=== PATIENT | female | born 1975 | race Hispanic/Latino ===

== ENCOUNTER 2024-08-23 09:51 | Inpatient (IN) | payer BC, OTHER ==
[~2024-08-23] VITALS: Ht 162.6 cm; Wt 99.8 kg
[2024-08-23] VITALS (23 sets, daily range): BP systolic 138–159; BP diastolic 84–102; PULSE 96–124; RESP 12–27; TEMP 97.8–98.2; O2SAT 90–100
[~2024-08-23 09:51] MED LIST: ALLERGY INJ SQ; BEYAZ 28 TABLE1 EACH PO; CELEBREX200 MG PO; LISINOPRIL-HCT1 EAC1 PO; LISINOPRIL20 MG PO; LOESTRIN 24 FE1 EACH PO; LOVENOX40 MG/0.4 SC; METFORMIN HCL1000 MG PO; METFORMIN HCL500 MG PO; NAPROXEN500 MG PO; NRC7.5T PO; SIMVASTATIN40 MG PO; SPIRONOLACTONE50 MG PO; ULTRAM 50MG50 MG PO; VICTOZA 2-0.6 MG/0.1 SQ; VITAMIN D1000 UNIT
[2024-08-23] MEDS ORDERED: FUROSEMIDE INJ 10 MG/ML 2 ML VIAL ONE (10:05)
[2024-08-23] MEDS: ONDANSETRON HCL INJ 2MG/ML 2ML 2 MG/ML VIAL IV STA (10:17)
[2024-08-23] MEDS: FUROSEMIDE INJ 10 MG/ML 2 ML VIAL IV ONE (10:17)
[2024-08-23 10:21] LABS: BASOPHILS % 0.4 % (0.0-1.0); EOSINOPHILS # (AUTO) 0.3 (0.0-0.4); EOSINOPHILS % 3.7 % (0.0-6.0); HEMATOCRIT 42.9 % (34.2-44.1); HEMOGLOBIN 14.5 g/dL (12.0-16.0); LYMPHOCYTES # (AUTO) 2.8 (1.0-3.2); LYMPHOCYTES % 36.8 % (18.0-39.1); MEAN CORPUSCULAR HGB CONC 33.8 g/dL (31-35); MEAN CORPUSCULAR VOLUME 88.6 fL (81-99); MONOCYTES # (AUTO) 0.4 (0.2-0.8); MONOCYTES % 5.2 % (4.4-11.3); NEUTROPHILS % 53.6 % (38.7-80.0); PLATELET COUNT 294 x10e3/uL (140-360); RED BLOOD COUNT 4.84 x10e6/uL (3.6-5.1); RED CELL DISTRIBUTION WIDTH 13.1 % (11.7-14.4); WHITE BLOOD COUNT 7.49 x10e3/uL (4.8-10.8)
[2024-08-23] MEDS: NITROGLYCERIN 2% OINT 1 GM PKT TOP STA (10:26)
[2024-08-23] MEDS ORDERED: SPIRONOLACTONE25 MG PO (10:26)
[2024-08-23] MEDS ORDERED: JARDIANCE10 MG PO (10:29)
[2024-08-23] MEDS ORDERED: DEXTROAMP-AMPHE30 MG PO (10:29)
[2024-08-23] MEDS ORDERED: LIPITOR20 MG PO (10:29)
[2024-08-23] MEDS ORDERED: CYCLOBENZAPRINE10 MG PO (10:29)
[2024-08-23] MEDS ORDERED: AMLODIPINE BESYL5 MG PO (10:29)
[2024-08-23 10:44] LABS: INR 0.92; PARTIAL THROMBOPLASTIN TIME 24.1 seconds (23.8-35.5); PROTHROMBIN TIME 12.9 seconds (11.9-14.5)
[2024-08-23 10:47] LABS: ALANINE AMINOTRANSFERASE 80 IU/L (0-55); ALBUMIN 3.6 g/dL (3.5-5.0); ALBUMIN/GLOBULIN RATIO 0.9 (0.8-2.0); ALKALINE PHOSPHATASE 66 IU/L (40-150); ANION GAP 16.4 mmol/L (8-16); BILIRUBIN,TOTAL 0.8 mg/dL (0.2-1.2); BLOOD UREA NITROGEN 7 mg/dL (7-26); BUN/CREATININE RATIO 9 (6-25); CALCIUM 8.8 mg/dL (8.4-10.2); CARBON DIOXIDE 24 mmol/L (22-29); CHLORIDE 100 mmol/L (98-107); CREATINE KINASE 120 IU/L (29-168); CREATININE, SERUM 0.78 mg/dL (0.57-1.11); EST GLOMERULAR FILTRATION RATE 93 ML/MIN (>=60); GLUCOSE 201 mg/dL (74-118); SODIUM 137 mmol/L (136-145); TOTAL PROTEIN 7.5 g/dL (6.5-8.1)
[2024-08-23 10:54] LABS: TROPONIN I 0.018 ng/mL (0-0.300)
[2024-08-23 11:00] LABS: POTASSIUM 3.4 mmol/L (3.5-5.1)
[2024-08-23] MEDS: Doxycycline IV 100 MG in SODIUM CHLORIDE 0.9% 100 ML IV SCH (11:12)
[2024-08-23] MEDS: CEFTRIAXONE 2 GM in SODIUM CHLORIDE 0.9% 100 ML IV ONE (11:12)
[2024-08-23] MEDS ORDERED: IOPAMIDOL 370 MG/ML 100 ML INFUS..BTL INJ ONE (11:18)
[2024-08-23 11:38] LABS: BACTERIA,URINE MODERATE /HPF; BILIRUBIN,URINE NEGATIVE (NEGATIVE); CLARITY,URINE CLEAR (CLEAR); COLOR,URINE YELLOW (YELLOW); EPITHELIAL CELLS,URINE MODERATE /LPF; GLUCOSE, URINE NEGATIVE (NEGATIVE); KETONES,URINE NEGATIVE (NEGATIVE); LEUKOCYTE ESTERASE ,URINE NEGATIVE (NEGATIVE); NITRITE,URINE NEGATIVE (NEGATIVE); PH,URINE 7 (5 - 7); PROTEIN,URINE DIPSTICK 2+ (NEGATIVE); RBC,URINE 0-5 /HPF (0-5); URINE UROBILINOGEN 0.2 mg/dL (0.2 - 1)
[2024-08-23] MEDS: METOPROLOL TARTRATE 25 MG TAB PO ONE (12:08)
[2024-08-23] MEDS: ENOXAPARIN SODIUM INJ 100 MG/ML SYR SC ONE (12:08)
[2024-08-23] MEDS ORDERED: ACETAMINOPHEN 325 MG TAB ONE (12:13)
[2024-08-23] MEDS ORDERED: ONDANSETRON HCL INJ 2MG/ML 2ML 2 MG/ML VIAL IV PRN (12:15)
[2024-08-23] MEDS: ACETAMINOPHEN 325 MG TAB PO ONE (12:20)
[2024-08-23 13:07] LABS: CORONAVIRUS COVID-19 AG NEGATIVE (NEGATIVE); INFLUENZA A AG NEGATIVE (NEGATIVE); INFLUENZA B AG NEGATIVE (NEGATIVE)
[2024-08-23] MEDS: CYCLOBENZAPRINE HCL 10 MG TAB PO SCH (15:57)
[2024-08-23] MEDS ORDERED: NITROGLYCERIN 2% OINT 1 GM PKT TOP SCH (16:00)
[2024-08-23] MEDS: SPIRONOLACTONE 25 MG TAB PO SCH (16:01)
[2024-08-23] MEDS: FUROSEMIDE INJ 10 MG/ML 2 ML VIAL IV SCH (16:01)
[2024-08-23] MEDS ORDERED: LABETALOL HCL 5 MG/ML 20ML VIAL IV PRN (17:30)
[2024-08-23] MEDS: ATORVASTATIN 40 MG TAB PO SCH (19:57)
[2024-08-23] MEDS: METOPROLOL TARTRATE 25 MG TAB PO SCH (22:19)
[2024-08-23] MEDS ORDERED: DEXTROSE 50% SYRINGE 50 ML IV PRN (23:15)
[2024-08-24] VITALS (18 sets, daily range): BP systolic 130–169; BP diastolic 81–103; PULSE 83–100; RESP 16–28; TEMP 98–98.9; O2SAT 91–98
[2024-08-24 06:31] LABS: BASOPHILS % 0.1 % (0.0-1.0); HEMATOCRIT 39.1 % (34.2-44.1); LYMPHOCYTES # (AUTO) 1.2 (1.0-3.2); LYMPHOCYTES % 11.1 % (18.0-39.1); MEAN CORPUSCULAR HEMOGLOBIN 30.1 pg (28-32); MEAN CORPUSCULAR HGB CONC 33.2 g/dL (31-35); MEAN CORPUSCULAR VOLUME 90.5 fL (81-99); MONOCYTES # (AUTO) 0.5 (0.2-0.8); NEUTROPHILS # (AUTO) 9.1 (2.1-6.9); NEUTROPHILS % 83.3 % (38.7-80.0); PLATELET COUNT 315 x10e3/uL (140-360); RED BLOOD COUNT 4.32 x10e6/uL (3.6-5.1); RED CELL DISTRIBUTION WIDTH 13.1 % (11.7-14.4)
[2024-08-24 06:58] LABS: ALBUMIN 3.2 g/dL (3.5-5.0); ALBUMIN/GLOBULIN RATIO 0.9 (0.8-2.0); ANION GAP 15.5 mmol/L (8-16); BILIRUBIN,TOTAL 0.9 mg/dL (0.2-1.2); CALCIUM 9.1 mg/dL (8.4-10.2); CHOL/HDL RATIO 3.1 (3.0-3.6); CREATININE, SERUM 0.81 mg/dL (0.57-1.11); POTASSIUM 3.5 mmol/L (3.5-5.1); TOTAL PROTEIN 6.7 g/dL (6.5-8.1)
[2024-08-24 07:14] LABS: TROPONIN I 0.027 ng/mL (0-0.300)
[2024-08-24] MEDS: PANTOPRAZOLE SOD 40 MG TABEC PO SCH (07:44)
[2024-08-24] MEDS: METFORMIN HCL 500 MG TAB PO SCH (07:44)
[2024-08-24] MEDS: INSULIN REGULAR, HUMAN 100 UNIT/1 ML SQ SCH (07:45)
[2024-08-24] MEDS: AMLODIPINE BESYLATE 10 MG TAB PO SCH (08:32)
[2024-08-24] MEDS ORDERED: AMLODIPINE BESYLATE 5 MG TAB PO SCH (09:00)
[2024-08-24 14:44] LABS: TROPONIN I 0.021 ng/mL (0-0.300)
[2024-08-24] MEDS: CARVEDILOL 12.5 MG TAB PO SCH (16:44)
[2024-08-24] MEDS: ENOXAPARIN SOD INJ 40 MG/0.4 ML SYR SC SCH (16:45)
[2024-08-25] VITALS (14 sets, daily range): BP systolic 126–165; BP diastolic 81–107; PULSE 79–99; RESP 13–33; TEMP 97.6–98.1; O2SAT 93–100
[2024-08-25] MEDS: FUROSEMIDE 40 MG TAB PO SCH (08:20)
[2024-08-25] MEDS: LOSARTAN POTASSIUM 100 MG TAB PO SCH (08:20)
[2024-08-26] VITALS (9 sets, daily range): BP systolic 125–147; BP diastolic 69–98; PULSE 60–89; RESP 18–20; TEMP 97.1–97.9; O2SAT 96–100
[2024-08-26 05:44] LABS: BASOPHILS # (AUTO) 0.1 (0.0-0.1); BASOPHILS % 0.7 % (0.0-1.0); EOSINOPHILS # (AUTO) 0.3 (0.0-0.4); EOSINOPHILS % 3.6 % (0.0-6.0); HEMATOCRIT 41.9 % (34.2-44.1); HEMOGLOBIN 13.6 g/dL (12.0-16.0); LYMPHOCYTES # (AUTO) 2.4 (1.0-3.2); LYMPHOCYTES % 34.1 % (18.0-39.1); MEAN CORPUSCULAR HEMOGLOBIN 29.6 pg (28-32); MEAN CORPUSCULAR HGB CONC 32.5 g/dL (31-35); MEAN CORPUSCULAR VOLUME 91.1 fL (81-99); MONOCYTES # (AUTO) 0.5 (0.2-0.8); MONOCYTES % 7.6 % (4.4-11.3); NEUTROPHILS # (AUTO) 3.7 (2.1-6.9); NEUTROPHILS % 53.6 % (38.7-80.0); PLATELET COUNT 307 x10e3/uL (140-360); RED CELL DISTRIBUTION WIDTH 13.5 % (11.7-14.4); WHITE BLOOD COUNT 6.96 x10e3/uL (4.8-10.8)
[2024-08-26 06:12] LABS: ANION GAP 16.8 mmol/L (8-16); CALCIUM 8.9 mg/dL (8.4-10.2); CREATININE, SERUM 0.74 mg/dL (0.57-1.11); POTASSIUM 3.8 mmol/L (3.5-5.1)
[2024-08-26 06:35] LABS: THYROID STIMULATING HORMONE 0.746 uIU/mL (0.350-4.940)
[2024-08-26] MEDS ORDERED: COZAAR100 MG PO (18:09)
[2024-08-26] MEDS ORDERED: PROTONIX40 MG/ML PO (18:09)
[2024-08-26] MEDS ORDERED: AMLODIPINE BESY10 MG PO (18:09)
[2024-08-26] MEDS ORDERED: DOXYCYCLINE HY100 MG PO (18:09)
[2024-08-26] MEDS ORDERED: COREG12.5 MG PO (18:09)
== END 2024-08-26 19:30 | disposition home or self-care (01) | DRG 291 ==
LOC: ER 10:09 → ERHOLD 12:23 → ICU 13:47 → MED/SURG2 08-25 14:51
PROVIDERS: ADMIT Internal Medicine; ATTEND Internal Medicine
DX: I11.0 Hypertensive heart disease with heart failure (principal); I50.41 Acute combined systolic (congestive) and diastolic (congestive) heart failure; J18.9 Pneumonia, unspecified organism; J96.01 Acute respiratory failure with hypoxia; I16.9 Hypertensive crisis, unspecified; K50.90 Crohn's disease, unspecified, without complications; E11.65 Type 2 diabetes mellitus with hyperglycemia; I16.0 Hypertensive urgency; I44.7 Left bundle-branch block, unspecified; E78.5 Hyperlipidemia, unspecified; G47.33 Obstructive sleep apnea (adult) (pediatric); M06.9 Rheumatoid arthritis, unspecified; K21.9 Gastro-esophageal reflux disease without esophagitis; M19.90 Unspecified osteoarthritis, unspecified site; Z11.52 Encounter for screening for COVID-19; Z79.84 Long term (current) use of oral hypoglycemic drugs; Z88.8 Allergy status to other drugs, medicaments and biological substances; Z88.0 Allergy status to penicillin; Z91.148 Patient's other noncompliance with medication regimen for other reason
CPT/HCPCS: 36415; 71045; 71260; 80048; 80053; 80061; 81001; 82550; 82948; 83036; 83605; 83880; 84443; 84484; 84702; 85025; 85379; 85610; 85730; 86140; 87040; 87086; 93005; 93306; 94799; 99252; 99284; J0696; J1650; J1940; J2405; J2470; J7050; Q9967